=== PATIENT | male | born 1950 | race Caucasian/White ===

== ENCOUNTER 2020-03-12 04:22 | Emergency (ER) | payer MEDICARE, BC ==
[2020-03-12] MEDS ORDERED: Sodium Chloride 0.9% 1,000 ML IV SCH (05:00)
--- NOTE | 2020-03-12 05:02 | EDM.PDOC ---
ED HPI GENERAL MEDICAL PROBLEM - General Chief Complaint: Respiratory Problem Stated Complaint: COVID POS STILL FEELING SICK Time Seen by Provider: 03/12/20 04:24 Source of Information: Reports: Patient History Limitations: Reports: No Limitations - History of Present Illness INITIAL COMMENTS - FREE TEXT/NARRATIVE: Is a 69-year-old male. He had Covid 2 weeks ago and he says he is doing okay. He is got no shortness of breath no nausea vomiting or diarrhea. He has no sore throat no nasal drainage. No body aching. But he does complain of still feeling very weak and very tired and sleeping a lot. He checked a pulse ox at home this morning with 1 of these portable pulse ox thing that he had bought and it was 83% so he comes to the ER. He is in no respiratory distress and when they checked his pulse ox upon entering into the ER it was 98%. He complains of being weak and tired and sleeping. He denies any other acute symptoms. - Related Data Allergies Allergy/AdvReac Type Severity Reaction Status Date / Time No Known Allergies Allergy Verified 03/12/20 04:38 Home Meds: Home Meds . [No Known Home Meds] 06/11/14 [History] Past Medical History - Past Health History Medical/Surgical History: Denies Medical/Surgical History Cardiovascular History: Reports: High Cholesterol - Infectious Disease History Infectious Disease History: Reports: Novel Coronavirus Social & Family History - Tobacco Use Tobacco Use Status *Q: Never Tobacco User - Caffeine Use Caffeine Use: Reports: Coffee - Recreational Drug Use Recreational Drug Use: No ED ROS GENERAL - Review of Systems Review Of Systems: See Below Constitutional: Reports: Weakness, Fatigue. Denies: Fever, Chills HEENT: Reports: No Symptoms. Denies: Rhinitis, Sinus Problem, Throat Pain Respiratory: Denies: Shortness of Breath, Cough Cardiovascular: Denies: Chest Pain Endocrine: Reports: No Symptoms GI/Abdominal: Denies: Abdominal Pain, Diarrhea, Nausea, Vomiting : Reports: No Symptoms Musculoskeletal: Reports: No Symptoms Skin: Reports: No Symptoms Neurological: Reports: Other (Generalized weakness) Psychiatric: Reports: No Symptoms Hematologic/Lymphatic: Reports: No Symptoms ED EXAM, GENERAL - Physical Exam Exam: See Below Exam Limited By: No Limitations General Appearance: Alert, WD/WN, No Apparent Distress Eye Exam: Bilateral Eye: Normal Inspection Ears: Normal External Exam, Normal Canal, Normal TMs Nose: Normal Inspection Throat/Mouth: Normal Inspection, Normal Lips, Normal Oropharynx, Normal Voice, No Airway Compromise, Other (Mucous membranes are dry) Head: Normocephalic Neck: Supple Respiratory/Chest: No Respiratory Distress, Lungs Clear, Normal Breath Sounds Cardiovascular: Regular Rate, Rhythm, No Murmur GI/Abdominal: Soft, Non-Tender Back Exam: Normal Inspection, Full Range of Motion Extremities: Normal Inspection, Normal Range of Motion Neurological: Alert, Oriented, CN II-XII Intact, No Motor/Sensory Deficits Psychiatric: Normal Affect, Normal Mood Skin Exam: Warm, Dry, Other (Skin turgor is poor) Course - Vital Signs Last Recorded V/S: Last Vital Signs Temp 98.3 F 03/12/20 04:32 Pulse 88 03/12/20 04:32 Resp 18 03/12/20 04:32 BP 152/85 H 03/12/20 04:32 Pulse Ox 97 03/12/20 04:32 - Orders/Labs/Meds Orders: Active Orders 24 hr Category Date Time Status CXR [Chest 1V Frontal] [CR] Stat Exams 03/12/20 04:58 Taken Sodium Chloride 0.9% [Normal Saline] 1,000 ml Med 03/12/20 05:00 Active IV ASDIRECTED Medication Orders Sodium Chloride (Normal Saline) 1,000 mls @ 1,000 mls/hr IV ASDIRECTED NIRU Last Admin: 03/12/20 05:12 Dose: 1,000 mls/hr Documented by: APPLE Labs: Laboratory Tests 03/12/20 03/12/20 03/12/20 Range/Units 05:17 05:17 05:17 WBC 7.49 (4.23-9.07) K/mm3 RBC 5.30 (4.63-6.08) M/mm3 Hgb 15.2 (13.7-17.5) gm/dl Hct 45.3 (40.1-51.0) % MCV 85.5 (79.0-92.2) fl MCH 28.7 (25.7-32.2) pg MCHC 33.6 (32.2-35.5) g/dl RDW Std Deviation 40.0 (35.1-43.9) fL Plt Count 291 (163-337) K/mm3 MPV 9.1 L (9.4-12.3) fl Neut % (Auto) 78.0 H (34.0-67.9) % Lymph % (Auto) 9.1 L (21.8-53.1) % [place] % (Auto) 12.3 H (5.3-12.2) % Eos % (Auto) 0 L (0.8-7.0) Baso % (Auto) 0.3 (0.1-1.2) % Neut # (Auto) 5.85 H (1.78-5.38) K/mm3 Lymph # (Auto) 0.68 L (1.32-3.57) K/mm3 [place] # (Auto) 0.92 H (0.30-0.82) K/mm3 Eos # (Auto) 0.00 L (0.04-0.54) K/mm3 Baso # (Auto) 0.02 (0.01-0.08) K/mm3 Manual Slide Review Abnormal smear Sodium 134 L (136-145) mEq/L Potassium 3.2 L (3.5-5.1) mEq/L Chloride 99 (98-107) mEq/L Carbon Dioxide 23 (21-32) mEq/L Anion Gap 15.2 H (5-15) BUN 17 (7-18) mg/dL Creatinine 1.3 (0.7-1.3) mg/dL Est Cr Clr Drug Dosing 59.32 mL/min Estimated GFR (MDRD) 55 (>60) mL/min BUN/Creatinine Ratio 13.1 L (14-18) Glucose 109 (80-115) mg/dL Calcium 8.7 (8.5-10.1) mg/dL Ferritin 726 H (26-388) ng/ml Total Bilirubin 0.8 (0.2-1.0) mg/dL AST 20 (15-37) U/L ALT 7 L (16-63) U/L Alkaline Phosphatase 76 (46-116) U/L Lactate Dehydrogenase 205 (85-227) U/L C-Reactive Protein 5.5 H* (<1.0) mg/dL Total Protein 7.0 (6.4-8.2) g/dl Albumin 2.7 L (3.4-5.0) g/dl Globulin 4.3 gm/dL Albumin/Globulin Ratio 0.6 L (1-2) Meds: Medications Generic Name Dose Route Start Last Admin Trade Name Anay PRN Reason Stop Dose Admin Sodium Chloride 1,000 mls @ 1,000 mls/hr 03/12/20 05:00 03/12/20 05:12 Normal Saline IV 1,000 mls/hr ASDIRECTED NIRU Administration - Radiology Interpretation Free Text/Narrative:: X-ray shows minimal groundglass appearance in the right upper lung field in the left lower lung field which is appropriate for a Covid positive resolving infection. - Re-Assessments/Exams Free Text/Narrative Re-Assessment/Exam: 03/12/20 07:04 2 the patient regarding his test results and chest x-ray. He is obviously recovering from the Covid virus but he is still having some tiredness and fatigue but I believe I am contributing that mostly to dehydration because he has not been hydrating himself well. I am going to release him from the clinic with strict instructions to hydrate. He is to follow-up with his doctor later this week. Departure - Departure Time of Disposition: 07:04 Disposition: Home, Self-Care 01 Condition: Good Clinical Impression: Lab test positive for detection of COVID-19 virus, Moderate dehydration Fatigue Qualifiers: Fatigue type: unspecified Qualified Code(s): R53.83 - Other fatigue - Discharge Information *PRESCRIPTION DRUG MONITORING PROGRAM REVIEWED*: Not Applicable *COPY OF PRESCRIPTION DRUG MONITORING REPORT IN PATIENT JARROD: Not Applicable Instructions: Dehydration, Adult, [id number], COVID-19 Frequently Asked Questions Referrals: Froilan Jimenes MD [Primary Care Provider] - Forms: ED Department Discharge Additional Instructions: In the ER because you were having fatigue which is a natural result of having the Covid virus, from your x-ray and lab work you are recovering from bad virus but is just a very slow process, it is very important that you continue to hydrate over the next several days, continue to rest with gentle activity and exercise, follow-up with your doctor later this week for recheck or return to the ER if needed Sepsis Event Note (ED) - Evaluation Sepsis Screening Result: No Definite Risk - Focused Exam Vital Signs: Vital Signs Temp Pulse Resp BP Pulse Ox 03/12/20 04:32 98.3 F 88 18 152/85 H 97 - My Orders Last 24 Hours: My Active Orders 03/12/20 04:58 CXR [Chest 1V Frontal] [CR] Stat 03/12/20 05:00 Sodium Chloride 0.9% [Normal Saline] 1,000 ml IV ASDIRECTED - Assessment/Plan Last 24 Hours: My Active Orders 03/12/20 04:58 CXR [Chest 1V Frontal] [CR] Stat 03/12/20 05:00 Sodium Chloride 0.9% [Normal Saline] 1,000 ml IV ASDIRECTED
[2020-03-12 07:56] VITALS: BP 110/76; PULSE 76
--- NOTE | 2020-03-13 13:03 | CR ---
PROCEDURE INFORMATION: Exam: XR Chest, 1 View Exam date and time: 03/12/2020 4:52 AM Age: 69 years old Clinical indication: Abnormal findings; Abnormal diagnostic tests; Patient HX: Fatigue, chills, covid positive, abd pain on off for weeks TECHNIQUE: Imaging protocol: XR of the chest Views: 1 view. COMPARISON: No relevant prior studies available. FINDINGS: Lungs: Minimal ground-glass airspace disease within the right upper lung field and left lower lung field. Pleural space: Unremarkable. No pleural effusion. No pneumothorax. Heart/Mediastinum: Unremarkable. No cardiomegaly. Bones/joints: Unremarkable. IMPRESSION: Minimal ground-glass airspace disease within the right upper lung field and left lower lung field. Followup radiographs recommended after appropriate therapy. Thank you for allowing us to participate in the care of your patient. Dictated and Authenticated by: Alberto Schmidt MD 03/12/2020 6:35 AM Central Time ([place] & [place]) [email or web address]
== END 2020-03-12 07:56 | disposition home or self-care (01) ==
LOC: JD.ED 04:22
DX: U07.1 COVID-19 (principal); E86.0 Dehydration
CPT/HCPCS: 36415; 71045; 80053; 82728; 83615; 85025; 86140; 99285; J7030; 99283